=== PATIENT | female | born 2000 ===

== ENCOUNTER → 2022-11-13 12:55 | Outpatient (CLI) | payer BC, SELFPAY ==
--- NOTE | ~2022-11-13 | US_ITS ---
US breast LT limited 11/13/2022 13:18 Indication: Palpable left breast abnormality for 3 weeks. Tenderness. Procedure: High-resolution Limited ultrasound of the left breast in the area of palpable concern. Comparison: No prior studies for comparison. Findings: At 8:00, 12 cm from the nipple in the area of palpable concern there is a complex heterogen eous 1 cm mass located in the subcutaneous tissues with parallel orientation, posterior acoustic enha ncement and heterogeneous internal echotexture. This mass measures 10 x 3 x 5 mm. No internal vascula rity. Impression: 1: Probable benign left breast mass in the area palpable concern measuring 10 x 3 x 5 mm. BI-RADS CATEGORY 3-PROBABLY BENIGN FINDING RECOMMENDATION: Six-month follow-up Limited left breast ultrasound recommended. Reviewed, dictated and finalized at location A. Impression: 1: Probable benign left breast mass in the area palpable concern measuring 10 x 3 x 5 mm. BI-RADS CATEGORY 3-PROBABLY BENIGN FINDING RECOMMENDATION: Six-month follow-up Limited left breast ultrasound recommended.
== END ==
PROVIDERS: PCP Nurse Practitioner; Visit Provider Nurse Practitioner
DX: N63.24 Unspecified lump in the left breast, lower inner quadrant (principal)
CPT/HCPCS: 76642

== ENCOUNTER 2023-09-05 17:03 | Outpatient (CLI) | payer BC, SELFPAY ==
--- NOTE | ~2023-09-05 | XR_ITS ---
EXAMINATION:XR_[id number] DATE: 09/05/2023 17:25 INDICATION: Neck and shoulder pain TECHNIQUE: AP, lateral, lateral swimmers and odontoid views of the cervical spine are provided. COMPARISON: None FINDINGS: Mild reversal of the normal lordosis in the lower cervical spine. Vertebral body heights are normal. Mild disc height loss at C4-C5. Anterior inferior endplate at C5. There is mild to moderate uncoverte bral osteoarthritis at C4-C5 and C5-C6. Multilevel mild cervical facet osteoarthritis. Odontoid is in tact. Normal atlantoaxial interval. Prevertebral soft tissues are normal. Visualized upper lungs ar e clear. IMPRESSION: 1. Mild cervical spondylosis. Reviewed, dictated and finalized at location A.
--- NOTE | ~2023-09-05 | XR_ITS ---
EXAMINATION: XR shoulder RT min 2V DATE: 09/05/2023 17:25 INDICATION: Right shoulder pain. TECHNIQUE: 4 views of right shoulder were obtained. COMPARISON: None. FINDINGS: Bone alignment is normal. No fracture. Joint spaces are normal. IMPRESSION: 1. Normal right shoulder. Reviewed, dictated and finalized at location A. IMPRESSION: 1. Normal right shoulder.
== END 2023-09-05 17:04 | disposition home or self-care (01) ==
LOC: ANHIMG 17:06
PROVIDERS: PCP Nurse Practitioner; Visit Provider Emergency Medicine
DX: M25.511 Pain in right shoulder (principal); M54.2 Cervicalgia; M43.02 Spondylolysis, cervical region
CPT/HCPCS: 72040; 73030